=== PATIENT | male | born 1960 | race African-American/Black ===

== ENCOUNTER 2016-12-24 13:18 | Emergency (ER) | payer MEDICAID, OTHER ==
[~2016-12-24] VITALS: Ht 180.3 cm; Wt 73.0 kg
[~2016-12-24 13:18] MED LIST: DICY20TA11 PO; OMEP20CA10 PO; ONDA4TAB51 PO
[2016-12-24] MEDS ORDERED: LITHTAB PO (13:44)
[2016-12-24] MEDS ORDERED: KETOROLAC 60MG/2ML VIAL IM ONE (18:30)
[2016-12-24 22:10] VITALS: BP 116/66
== END 2016-12-24 22:14 | disposition home or self-care (01) ==
LOC: ER 13:18
DX: M54.5 Low back pain (principal); B35.4 Tinea corporis; F31.9 Bipolar disorder, unspecified; F12.10 Cannabis abuse, uncomplicated
CPT/HCPCS: 96372; 99283; J1885